=== PATIENT | female | born 1970 | race Caucasian/White ===

== ENCOUNTER 2017-09-21 08:00 | Outpatient (CLI) | payer OTHER ==
[2017-09-21 13:45] LABS: BASOPHILS # (AUTO) 0.1 10^3/uL (0.0-0.1); BASOPHILS % (AUTO) 1.1 %; EOSINOPHILS # (AUTO) 0.2 10^3/uL (0.0-0.7); EOSINOPHILS % (AUTO) 2.2 %; HGB - HEMOGLOBIN 13.2 g/dL (12.0-16.0); LYMPHOCYTES # (AUTO) 1.5 10^3/uL (1.5-3.5); MEAN CORPUSCULAR HEMOGLOBIN 32.8 pg (27.0-31.0); MEAN CORPUSCULAR HGB CONC 33.9 g/dL (32.0-36.0); MEAN CORPUSCULAR VOLUME 96.8 fL (81.0-99.0); MEAN PLATELET VOLUME 9.4 fL (7.9-10.8); MONOCYTES # (AUTO) 0.6 10^3/uL (0.0-1.0); MONOCYTES % (AUTO) 8.9 %; NEUTROPHILS # (AUTO) 4.5 10^3/uL (1.5-6.6); NEUTROPHILS % (AUTO) 65.8 %; PLT - PLATELET COUNT 250 10^3/uL (130-450); RED BLOOD COUNT 4.03 10^6/uL (4.20-5.40); RED CELL DISTRIBUTION WIDTH 13.2 % (12.0-15.0); WHITE BLOOD COUNT 6.8 x10^3/uL (4.8-10.8)
[2017-09-21 13:58] LABS: ALBUMIN 4.2 g/dL (3.2-5.5); ALBUMIN/GLOBULIN RATIO 1.3 (1.0-2.2); ALKALINE PHOSPHATASE 51 IU/L (42-121); ALT ALANINE AMINOTRANSFERASE 16 IU/L (10-60); AST ASPARTATE AMINOTRANSFERASE 19 IU/L (10-42); BILIRUBIN,TOTAL 0.5 mg/dL (0.2-1.0); BUN - BLOOD UREA NITROGEN 13 mg/dL (6-20); CALCIUM 9.2 mg/dL (8.5-10.3); CARBON DIOXIDE - CO2 24 mmol/L (21-32); CHLORIDE 104 mmol/L (101-111); CHOL/HDL RATIO 2.8 (<4.4); CHOLESTEROL 175 mg/dL; CREATININE 0.7 mg/dL (0.4-1.0); GFR - MDRD 90 (>89); GLUCOSE 96 mg/dL (70-100); HDL CHOLESTEROL 62 mg/dL; LDL CHOLESTEROL,CALCULATED 88 mg/dL; LDL/HDL RATIO 1.4 (<4.4); SODIUM 140 mmol/L (135-145); TOTAL PROTEIN 7.4 g/dL (6.7-8.2); VLDL CHOLESTEROL 25 mg/dL
== END 2017-09-21 08:01 | disposition home or self-care (01) ==
LOC: LAB.WCP 08:00
PROVIDERS: ATTEND Family Medicine
DX: I10 Essential (primary) hypertension (principal); Z13.220 Encounter for screening for lipoid disorders; E03.9 Hypothyroidism, unspecified
CPT/HCPCS: 36415; 80053; 80061; 83721; 84443; 85025

== ENCOUNTER 2018-11-16 11:37 | Outpatient (CLI) | payer OTHER ==
--- NOTE | 2018-11-16 13:41 | XRAY Report ---
Reason: FOOT PAIN,RIGHT Procedure Date: 11/16/2018 Accession Number: [id number] / [id number] Procedure: WCP - Foot 3 View RT CPT Code: FULL RESULT: EXAMS: RIGHT FOOT AND ANKLE RADIOGRAPHY EXAM DATE: 11/16/2018 11:53 AM. CLINICAL HISTORY: Ankle pain. COMPARISON: None. TECHNIQUE: 3 views each foot and ankle. FINDINGS: Bones: Remote posttraumatic changes are seen at the tip of the medial malleolus. No acute fracture is detected. Mild inferior calcaneal spurring is noted. Os trigonum. Joints: Normal. No effusions. No subluxations in the foot or ankle. The ankle mortise is normally aligned. Soft Tissues: Mild soft tissue swelling is seen predominantly along the medial malleolus. IMPRESSION: No acute fracture or dislocation. Os trigonum is noted. Correlate to symptoms of posterior impingement syndrome. [facility]
--- NOTE | 2018-11-16 13:41 | XRAY Report ---
Reason: ANKLE PAIN Procedure Date: 11/16/2018 Accession Number: [id number] / [id number] Procedure: WCP - Ankle 3 View RT CPT Code: FULL RESULT: EXAMS: RIGHT FOOT AND ANKLE RADIOGRAPHY EXAM DATE: 11/16/2018 11:53 AM. CLINICAL HISTORY: Ankle pain. COMPARISON: None. TECHNIQUE: 3 views each foot and ankle. FINDINGS: Bones: Remote posttraumatic changes are seen at the tip of the medial malleolus. No acute fracture is detected. Mild inferior calcaneal spurring is noted. Os trigonum. Joints: Normal. No effusions. No subluxations in the foot or ankle. The ankle mortise is normally aligned. Soft Tissues: Mild soft tissue swelling is seen predominantly along the medial malleolus. IMPRESSION: No acute fracture or dislocation. Os trigonum is noted. Correlate to symptoms of posterior impingement syndrome. [facility]
== END 2018-11-16 11:38 | disposition home or self-care (01) ==
LOC: DI.WCP 11:37
PROVIDERS: ATTEND Family Medicine
DX: M79.671 Pain in right foot (principal); Q68.8 Other specified congenital musculoskeletal deformities